=== PATIENT | male | born 1975 | race Caucasian/White ===

== ENCOUNTER 2024-12-12 16:57 | Emergency (ER) | payer BC, SELFPAY ==
[2024-12-12 17:42] VITALS: BP 118/64; PULSE 59; RESP 18; TEMP 37.2; O2SAT 98; BMI 23.4
--- NOTE | 2024-12-12 18:01 | PD.EDRME ---
Rapid Medical Screening Exam E Arrival date/time: 12/12/24 16:57 This is a 49-year-old male that comes in complaining of nausea and right sided abdominal pain. Patient states that he was sick last week he was hiking and was drinking questionable water on the hike. Patient states as a result he had some nausea, vomiting and diarrhea. Patient states that he was already feeling better and his symptoms had resolved. Patient states his symptoms today started this morning. History of kidney stones I have greeted and performed a focused initial assessment of this patient. Initial appropriate labs ordered at this time. A comprehensive ED assessment and evaluation of the patient and analysis of all test and completion of medical decision making process will be conducted by additional ED provider. Chief Complaint: Abdominal Pain Time Seen by Provider: 12/12/24 17:06 Vital signs: Vital Signs Temperature 98.9 F 12/12/24 17:42 Pulse Rate 59 L 12/12/24 17:42 Respiratory Rate 18 12/12/24 17:42 Blood Pressure 118/64 12/12/24 17:42 Pulse Oximetry (%) 98 12/12/24 17:42 Oxygen Delivery Method Room Air 12/12/24 17:42
[2024-12-12 18:24] LABS: Basophils % (Auto) 0 % (0-2.5); Eosinophils # (Auto) 0.1 Thou/mm3 (0.0-0.5); Eosinophils % (Auto) 1 % (0-10); Hematocrit 36.3 % (41.0-53.0); Hemoglobin 12.9 g/dL (13.5-16.0); Immature Granulocytes % (Auto) 0 % (0-0); Immature Granulocytes Auto 0.02 Thou/mm3 (0.00-0.00); Lymphocytes # (Auto) 2.9 Thou/mm3 (1.0-4.8); Lymphocytes % (Auto) 33 % (10-50); Mean Corpuscular HGB Conc 35.5 g/dl (31.0-37.0); Mean Corpuscular Hemoglobin 33.6 pg (25.0-35.0); Mean Corpuscular Volume 95 fL (80-100); Monocytes # (Auto) 0.8 Thou/mm3 (0.0-0.8); Monocytes % (Auto) 10 % (0-12); Neutrophils # (Auto) 4.9 Thou/mm3 (1.8-7.7); Neutrophils % (Auto) 56 % (37-80); Nucleated Red Blood Cell % 0 /100 WBC (0); Platelet Count 269 Thou/mm3 (140-440); RDW Standard Deviation 41.2 fL (35.1-43.9); Red Blood Count 3.84 Miln/mm3 (4.50-5.90); White Blood Count 8.7 Thou/mm3 (3.8-10.6)
[2024-12-12 18:24] LABS: Collection Type, Urine Voided; Squamous Epithelial Cell,Urine 0 /hpf (0-5)
[2024-12-12 18:37] LABS: Bilirubin,Urine Negative (Negative); Blood,Urine 2+ (Negative); Clarity,Urine Clear (Clear/Hazy); Color,Urine Lt-Yellow (Lt Yel-Yel); Culture Indicated,Urine Not Indicated; Glucose, Urine Negative (Negative); Ketones,Urine Negative (Negative); Leukocyte Esterase,Urine Negative (Negative); Nitrite,Urine Negative (Negative); Protein,Urine Negative (Neg - Trace); RBC,Urine 13 /hpf (0-3); Specific Gravity,Urine 1.023 (1.001-1.035); Urobilinogen,Urine Negative mg/dL (0.0-1.0); WBC,Urine 1 /hpf (0-5)
[2024-12-12 18:45] LABS: Alanine Aminotransferase 45 U/L (10-49); Albumin, Serum 4.4 gm/dL (3.5-5.0); Albumin/Globulin Ratio 2.2 (1.2-2.2); Alkaline Phosphatase 55 U/L (46-116); Anion Gap 4 (7-16); Aspartate Amino Transferase 31 U/L (0-34); BUN/Creatinine Ratio 21 Ratio (12-20); Bilirubin,Total 0.5 mg/dL (0.3-1.2); Blood Urea Nitrogen 17 mg/dL (9-23); Calcium 9.3 mg/dL (8.3-10.6); Calcium (Corrected) 9.3 mg/dL (8.5-10.1); Carbon Dioxide 27.9 mMol/L (20.0-31.0); Chloride 104 mMol/L (98-107); Creatinine (Component) 0.8 mg/dL (0.6-1.3); Estimated Creatinine Clearance 105.7 mL/min (>60); Glucose 99 mg/dL (74-106); Lipase 38 U/L (12-53); Osmolality,Calculated 273 (275-295); Potassium 3.7 mMol/L (3.4-5.1); Sodium 136 mMol/L (136-145); Total Protein 6.4 gm/dL (5.7-8.2); eGFR > 60 See Note
[2024-12-12 20:18] VITALS: BP 110/64; PULSE 57; RESP 18; TEMP 37.2; O2SAT 99
--- NOTE | 2024-12-12 22:05 | XR_ITS ---
Examination: CT abdomen and pelvis without contrast. Coronal 3-D reconstructions. Sagittal 2-D reconstructions. Date and time of exam:November 29, 2024 at 1042. COMPARISON: June 27, 2020 INDICATIONS: Upper abdominal pain this week CTDI: vol (mGy): 6.91 DLP: (mGycm): 365 Technique: Axial images of the abdomen have been obtained, 3 mm slice thickness Intravenous contrast material has not been administered. Low dose protocols were performed. One or more of the following dose reduction techniques were used; automated exposure control, adjustment of the mA and/or KV according to patient size, use of iterative reconstruction technique. Findings: No focal liver or splenic lesion Suspicious for tiny gallstones No pancreatic mass No renal or ureteral calculi, no hydronephrosis Normal appendix No bowel obstruction No diverticulitis Contracted urinary bladder Moderate diffuse lumbar disc narrowing IMPRESSION: Recommend abdominal sonography to exclude cholelithiasis.
--- NOTE | 2024-12-12 22:07 | PD.EDABDPN ---
ED Abdominal Pain RME/HPI General Chief Complaint: Abdominal Pain Stated complaint: ABD PAIN Time seen by provider: 12/12/24 17:06 Arrival date/time: 12/12/24 16:57 RME / HPI RME / HPI narrative: 12/12/24 16:57 This is a 49-year-old male that comes in complaining of nausea and right sided abdominal pain. Patient states that he was sick last week he was hiking and was drinking questionable water on the hike. Patient states as a result he had some nausea, vomiting and diarrhea. Patient states that he was already feeling better and his symptoms had resolved. Patient states his symptoms today started this morning. History of kidney stones I have greeted and performed a focused initial assessment of this patient. Initial appropriate labs ordered at this time. A comprehensive ED assessment and evaluation of the patient and analysis of all test and completion of medical decision making process will be conducted by additional ED provider. DR. MAYA MAIN ED EVALUATION: 49 y/o male presents to ED c/o worsening right upper abdominal pain and mild nausea x this morning. Pain is worse when hunching over and taking heavy steps when walking. Patient reports he has recently gone backpacking and had water while hiking. He has also admitted to being sick and experiencing abdominal pain, diarrhea, and body aches which resolved 6 days ago. Patient had an US done showing a right-sided kidney stone approximately 3/8 inches. Patient expresses a concern for Giardia due and possible fluffy stool . Patient denies diarrhea, vomiting, burping, difficulty in urinating, or any other associated symptoms or other aggravating factors. No other modifying factors, no radiation, no migration. Related Data Home Medications ?Medication ?Instructions ?Recorded ?Confirmed sulfamethoxazole 800 1 tab PO BID 06/02/20 06/30/20 mg-trimethoprim 160 mg tablet (Bactrim DS) Allergies Allergy/AdvReac Type Severity Reaction Status Date / Time No Known Allergies Allergy Verified 06/30/20 10:00 Review of Systems Review of Systems Systems Reviewed: All systems reviewed, normal except as documented Narrative Review of Systems: Gen: No fever, no chills, no weight loss EYES: No discharge, no visual changes, no pain HEENT: No ear pain, no congestion, no sore throat PULM: No shortness of breath, no cough, no congestion CV: No chest pain, no dyspnea on exertion, no palpitations GI: Mild nausea, no vomiting, no diarrhea, right upper abdominal pain, no constipation, no burping : No frequency, no urgency, no dysuria, no difficulty urinating Musc/skel: No joint pain, no back pain Skin: No rash. Psyc: No hallucinations, no depression Heme/Lymph: No easy bleeding or bruising tendencies Neuro: No weakness, no headache ED Exam Narrative Physical exam: GENERAL APPEARANCE: alert and oriented x 4, well-developed, well-nourished, no acute distress VITALS: All vitals were reviewed and the pulse ox is 99% on room air, which is normal according to my interpretation. HEENT: Normocephalic, atraumatic; pupils equal, round, reactive to light; EOMI; mucous membranes pink, moist; oropharynx clear NECK: Supple LUNGS: CTABL; no wheezes, no rales, no rhonchi HEART: Regular rate, regular rhythm; normal S1, S2; no murmurs ABDOMEN: non distended; normal BS; soft, Some epigastric tenderness, no guarding, no rebound; no masses, no organomegaly, no hernia BACK: no CVA tenderness EXTREMITIES: atraumatic; no edema NEUROLOGIC: awake; alert and oriented x4; cranial nerves II-XII grossly intact; no focal sensory or motor deficits PSYCHIATRIC: appropriate mood and affect SKIN: warm, dry, normal color; no rashes Course Course Course Narrative: 2204: Abdomen/Pelvis US w/o contrast ordered. 2206: Ova and parasite ordered. Quality Measures none Orders Category Date Time Status CT abdomen pelvis wo con Stat Exams 12/12/24 22:05 Completed CBC Stat Lab 12/12/24 18:10 Completed Comprehensive Metabolic Panel Stat Lab 12/12/24 18:10 Completed Lipase Stat Lab 12/12/24 18:10 Completed Ova & Parasites, Conc, Smear* Stat Lab 12/12/24 22:07 Received Troponin I Stat Lab 12/13/24 00:00 Completed Urinalysis, C/S if Indicated Stat Lab 12/12/24 18:17 Completed Lidocaine 2% Viscous [Xylocaine 2% Viscous] Med 12/12/24 22:06 Discontinued 15 ml PO X1 ONE Sucralfate Susp [Carafate Susp] Med 12/12/24 22:06 Discontinued 1 gm PO X1 ONE mg Hyd/Al Hyd/Sanchez Susp [Maalox Susp] Med 12/12/24 22:06 Discontinued 30 ml PO X1 ONE Vital Signs Vital signs: Vital Signs Temperature 98.9 F 12/12/24 17:42 Pulse Rate 59 L 12/12/24 17:42 Respiratory Rate 18 12/12/24 17:42 Blood Pressure 118/64 12/12/24 17:42 Pulse Oximetry (%) 98 12/12/24 17:42 Oxygen Delivery Method Room Air 12/12/24 17:42 Abdominal Pain MDM MDM Narrative MDM Narrative:: Scribe Attestation: IAsia, am scribing for and in the presence of Dr. Maya. Provider Notation: Although this document has been carefully reviewed, there may still be some phonetic and other typographical errors.? These errors are purely grammatical due to imperfections in the software program and should not be construed in any way to? compromise the substance of the patient's medical care during this visit. Patient data External records reviewed:: [facility] previous records (Prior ED records from 12/08/23 reviewed. Patient was seen for Palpitations.) Clinical information provided by:: patient Social determinants that could affect healthcare access:: none Patient has the following chronic illnesses:: None reported. How is presenting disease/condition affected by chronic disease/condition?: no chronic disease (None reported.) Evaluation data The following diagnostics were reviewed and interpreted by me:: lab results and radiology exam(s) Lab and/or radiology exams considered but not ordered:: None. Interpretation Summary: RADIOLOGY ABDOMEN/PELVIS CT: I have personally reviewed the results below. Additionally, I agree with the radiologist's interpretation. Patient: TYREE MILLER [facility]. Record#: [id number] Birthdate: 1975 Age/Sex: 49 / M Location: [facility] Attending Dr: Ordering Physician: Stephy Maya MD Date of Service: 12/12/24 Procedure(s): CT abdomen pelvis wo con Accession Number(s): [id number] cc: Ortega Sarah MD; NO PRIMARY/FAMILY,PHYSICIAN; Setphy Maya MD~ Examination: CT abdomen and pelvis without contrast. Coronal 3-D reconstructions. Sagittal 2-D reconstructions. Date and time of exam:November 29, 2024 at 1042. COMPARISON: June 27, 2020 INDICATIONS: Upper abdominal pain this week CTDI: vol (mGy): 6.91 DLP: (mGycm): 365 Technique: Axial images of the abdomen have been obtained, 3 mm slice thickness Intravenous contrast material has not been administered. Low dose protocols were performed. One or more of the following dose reduction techniques were used; automated exposure control, adjustment of the mA and/or KV according to patient size, use of iterative reconstruction technique. Findings: No focal liver or splenic lesion Suspicious for tiny gallstones No pancreatic mass No renal or ureteral calculi, no hydronephrosis Normal appendix No bowel obstruction No diverticulitis Contracted urinary bladder Moderate diffuse lumbar disc narrowing IMPRESSION: Recommend abdominal sonography to exclude cholelithiasis. Dictated By: Ortega Sarah MD Signed By: <Electronically signed by Ortega Sarah MD in [place]> 12/12/24 6462 Medications / Prescriptions Medications or Prescriptions considered but not ordered:: None. Medication administrations:: Medication Administration History Discontinued Medications Al Hydrox/Mg Hydrox/Simethicone (Mg Hyd/Al Hyd/Sanchez (Maalox Reg) Susp 30 Ml Udc) 30 ml PO X1 ONE Stop: 12/12/24 22:07 Last Admin: 12/12/24 22:14 Dose: 30 ml Documented By: OA Lidocaine HCl (Lidocaine Viscous 2% 15 Ml Udc) 15 ml PO X1 ONE Stop: 12/12/24 22:07 Last Admin: 12/12/24 22:14 Dose: 15 ml Documented By: OA Sucralfate (Sucralfate Susp 1 Gm/10 Ml Udc) 1 gm PO X1 ONE Stop: 12/12/24 22:07 Last Admin: 12/12/24 23:50 Dose: 1 gm Documented By: KF See above if any. Consultations Consultation(s) initiated? (list below): No Diagnosis Differential diagnosis abdominal pain: abdominal pain, calculus of kidney, diverticulitis, gastroenteritis, pancreatitis and small bowel obstruction Most likely diagnosis given after review of the tests above:: Abdominal pain, Benign microscopic hematuria. Admission Indicated Admission indicated?: not indicated Explain why admission is indicated or not indicated:: Does not meet admission criteria. Admission Request Was there a request for admission?: No Disposition Plan Disposition Plan: Discharge Discharge Attestation Discharge Attestation: The patient and all family members were given an opportunity to ask questions and understood the discharge instructions. Discharge instructions specifically effects, indications for sooner follow up or return to the emergency department, and the expected course of current diagnosis. Patient condition: Stable Discharge Plan Plan Patient Disposition: HOME (Self Care) Prescriptions/Referrals Prescriptions/Med Rec: No Action sulfamethoxazole-trimethoprim [Bactrim DS] 800-160 mg tablet 1 tab PO BID Referrals: No Primary/Family,Physician [Primary Care Provider] - In 1 week Problem List Clinical Impression: Abdominal pain, Benign microscopic hematuria Patient/Caregiver Discharge Instructions Education Materials: Abdominal Pain, ED Hematuria Additional Instructions: Your stool sample has been sent for testing. Print Language: Setswana Stand Alone Forms: Grace Award Info., Patient Portal Info Letter
[2024-12-12] MEDS: LIDOCAINE VISCOUS 2% 15 ML UDC PO (22:14)
[2024-12-12] MEDS: MG HYD/AL HYD/SIME (Maalox Reg) SUSP 30 ML UDC PO (22:14)
[2024-12-12] MEDS: SUCRALFATE SUSP 1 GM/10 ML UDC PO (23:50)
[2024-12-13 01:48] LABS: Troponin I < 0.002 ng/mL (0.0-0.045)
== END 2024-12-13 00:01 | disposition home or self-care (01) ==
PROVIDERS: Nurse Practitioner Family; Emergency Provider Emergency Medicine
DX: R10.11 Right upper quadrant pain (principal); R31.1 Benign essential microscopic hematuria
CPT/HCPCS: 36415; 74176; 80053; 81001; 83690; 84484; 85025; 87177; 87209; 99284; J3490; A9270